=== PATIENT | male | born 1955 | race American Indian/Alaskan Native ===

== ENCOUNTER 2019-02-03 13:33 | Emergency (ER) | payer MEDICARE ==
--- NOTE | 2019-02-03 14:03 | Emergency Department Report ---
Blank Doc - Documentation Documentation: 64 y o male presents to ED cc of sore throat and bilateral legs and feet pain x a while speaking in clear sentences,states he is homeless [facility] evaluate
[2019-02-03] MEDS ORDERED: NACL 0.9% 1000 ML IV ONE (14:32)
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
--- NOTE | 2019-02-03 15:16 | XRay Report ---
PROCEDURE: XR CHEST ROUTINE 2V TECHNIQUE: Frontal and lateral chest radiographs. HISTORY: sepsis COMPARISONS: None FINDINGS: The cardiomediastinal silhouette is normal. No consolidation. Nodular opacities project in the mid lung on both sides measuring 8 mm. No pleural effusion. No pneumothorax. No acute osseous abnormality. There is loss of anterior height of the T8 vertebral bodies. IMPRESSION: No acute process in the chest. Nodular opacities projecting in the right and left midlungs likely represent nipple shadows. Recommen d repeat study with nipple markers. Probable chronic T8 compression fracture. This document is electronically signed by Angelita Mazariegos., February 03 2019 04:14:01 PM ET
[2019-02-03 16:09] LABS: Alanine Aminotransferase 68 units/L (7-56); Albumin 4.3 g/dL (3.9-5); BUN/Creatinine Ratio 12; Blood Urea Nitrogen 13 mg/dL (9-20); Calcium 9.3 mg/dL (8.4-10.2); Hemolysis Index 21
[2019-02-03 16:22] LABS: Basophils # (Auto) 0.1 K/mm3 (0.0-0.1); Hematocrit 43.2 % (35.5-45.6); Lymphocytes # (Auto) 1.6 K/mm3 (1.2-5.4); Lymphocytes % (Auto) 11.7 % (13.4-35.0); Mean Corpuscular HGB Conc 35 % (32-34); Mean Corpuscular Volume 99 fl (84-94); Monocytes # (Auto) 0.8 K/mm3 (0.0-0.8); Monocytes % (Auto) 6.1 % (0.0-7.3); Platelet Count 358 K/mm3 (140-440); Red Blood Count 4.36 M/mm3 (3.65-5.03)
[2019-02-03 16:56] VITALS: BP 127/82
[2019-02-03 18:33] LABS: Bacteria,Urine 1+ /HPF (Negative); Bilirubin,Urine NEG (Negative); Blood,Urine SM (Negative); Color,Urine Amber (Yellow); Mucus,Urine FEW /HPF
== END 2019-02-03 18:53 | disposition home or self-care (01) ==
LOC: ED 13:33
DX: J02.9 Acute pharyngitis, unspecified (principal); F17.200 Nicotine dependence, unspecified, uncomplicated; F12.10 Cannabis abuse, uncomplicated; Z59.0 Homelessness; M79.671 Pain in right foot; M79.672 Pain in left foot; E86.0 Dehydration
CPT/HCPCS: 36415; 71046; 80053; 81001; 82140; 82550; 82805; 84484; 85025; 87040; 87086; 93005; 93010; 96360; 96361; 99284; J7030